=== PATIENT | male | born 1950 ===

== ENCOUNTER 2025-04-06 07:00 | Day surgery (SDC) | payer OTHER ==
[2025-04-06] MEDS ORDERED: MIDAZOLAM HCL 2 MG/2 ML VIAL IV ONE (12:45)
[2025-04-06] MEDS ORDERED: DIPHENHYDRAMINE HCL 50 MG/ML VIAL 1ML IV ONE (12:45)
[2025-04-06] MEDS ORDERED: fentaNYL CITRATE 50 MCG/ML AMPUL IV PUSH ONE (12:45)
[2025-04-06] MEDS ORDERED: ONDANSETRON HCL 2 MG/ML VIAL IV ONE (12:45)
== END 2025-04-06 13:35 | disposition home or self-care (01) ==
LOC: AMB-ENDOS 07:00
PROVIDERS: ATTEND Colon & Rectal Surgery
DX: D12.0 Benign neoplasm of cecum (principal); D12.2 Benign neoplasm of ascending colon; D12.4 Benign neoplasm of descending colon; K63.5 Polyp of colon